=== PATIENT | female | born 1990 | race Caucasian/White ===

== ENCOUNTER 2018-06-21 08:33 | Day surgery (SDC) | payer MEDICAID ==
[~2018-06-21 08:33] MED LIST: Clindamycin Phosphate in D5W 50 ML ONE; Lactated Ringers 1,000 ML IV SCH
--- NOTE | 2018-06-21 09:31 | PCM.PREANE ---
Preanesthetic Assessment - Anesthesia/Transfusion/Family Hx Anesthesia History: Prior Anesthesia Reaction (sensative to the histamine release from morphine, does well with fentanyl and dilaudid) Family History of Anesthesia Reaction: No Transfusion History: No Prior Transfusion(s) - Review of Systems General: No Symptoms Pulmonary: No Symptoms Cardiovascular: No Symptoms Gastrointestinal: No Symptoms Neurological: No Symptoms Other: Reports: None - Physical Assessment NPO Status Date: 06/20/18 Height: 5 ft 6 in Weight: 73.936 kg ASA Class: 2 Mental Status: Alert & Oriented x3 Airway Class: Mallampati = 1 Dentition: Reports: Normal Dentition ROM/Head Extension: Full Lungs: Clear to Auscultation Cardiovascular: Regular Rate, Regular Rhythm - Lab Values: Laboratory Last Values Urine HCG, Qual NEGATIVE (NEGATIVE) 06/21/18 08:52 - Allergies Allergies/Adverse Reactions: Allergies Allergy/AdvReac Type Severity Reaction Status Date / Time gluten Allergy Diarrhea Verified 06/21/18 09:24 morphine Allergy Shortness Verified 06/21/18 09:24 of Breath Penicillins Allergy Nausea and Verified 06/21/18 09:24 Vomiting - Blood Blood Available: No - Anesthesia Plan Pre-Op Medication Ordered: None - Acknowledgements Anesthesia Type Planned: General Anesthesia Pt an Appropriate Candidate for the Planned Anesthesia: Yes Alternatives and Risks of Anesthesia Discussed w Pt/Guardian: Yes Pt/Guardian Understands and Agrees with Anesthesia Plan: Yes Additional Comments: PMH:celiac dx, morphine sensativity, PLAN: ga-lma PreAnesthesia Questionnaire HEENT History: Reports: Other (See Below) Other HEENT History: uses glasses for driving- hx of fx nose Gastrointestinal History: Reports: Other (See Below) Other Gastrointestinal History: hx of Celiac Disease Genitourinary History: Reports: Renal Calculus 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 SETTER History: Reports: Endometriosis, Musculoskeletal History: Reports: Fracture Other Musculoskeletal History: hx of fx wrist Neurological History: Reports: Other (See Below) Other Neuro History: hx of motion sickness Psychiatric History: Reports: Anxiety Hematologic History: Reports: Iron Deficiency, Other (See Below) Other Hematologic History: Vitamin D deficency, low Ferritin level Dermatologic History: Reports: Eczema, Other (See Below) Other Dermatologic History: hx of Herpes - Past Surgical History HEENT Surgical History: Reports: Oral Surgery, Tonsillectomy Other HEENT Surgeries/Procedures: extraction of Merrill teeth GI Surgical History: Reports: Cholecystectomy, Hernia, Inguinal Female Surgical History: Reports: Section, Endometrial Ablation, Hysterectomy, Other (See Below) Other Female Surgeries/Procedures: hx of theraputic - SUBSTANCE USE Smoking Status *Q: Never Smoker Recreational Drug Use History: No - HOME MEDS Home Medications: Home Meds Acyclovir 400 mg PO BID 06/18/18 [History] Beef Liver 1 cap PO DAILY 06/18/18 [History] Cholecalciferol (Vitamin D3) [Vitamin D3] 50,000 unit PO WEEKLY 06/18/18 [ History] LORazepam 2 mg PO ONETIME PRN 06/18/18 [History] Phytonadione [Vitamin K] 100 mcg PO DAILY 06/18/18 [History] - CURRENT (IN HOUSE) MEDS Current Meds: Current Medications Lactated Ringer's (Ringers, Lactated) 1,000 mls @ 125 mls/hr IV ASDIRECTED JAY JAY Discontinued Medications Clindamycin Phosphate 300 mg/ (Sodium Chloride) 52 mls @ 100 mls/hr IV ASDIRECTED JAY JAY Stop: 06/21/18 06:32 Clindamycin Phosphate (Cleocin In D5w) Confirm Administered Dose 50 mls @ as directed .ROUTE .STK-MED ONE Stop: 06/21/18 07:47
[2018-06-21] MEDS ORDERED: Midazolam 1 MG/ML 2 ML SDV ONE (10:28)
[2018-06-21] MEDS ORDERED: Propofol 200 MG/20 ML SDV ONE (10:28)
[2018-06-21] MEDS ORDERED: Lidocaine 2% 5 ML SDV ONE (10:28)
[2018-06-21] MEDS ORDERED: fentaNYL 250 MCG/5 ML SDV ONE (10:28)
[2018-06-21] MEDS ORDERED: Clindamycin Phosphate in D5W 600 MG in Premix Bag 1 BAG IV ONE ×2 (10:36)
[2018-06-21] MEDS ORDERED: Bupivacaine 0.5% 10 ML SDV ONE (10:36)
[2018-06-21] MEDS ORDERED: Ondansetron 4 MG/2 ML SDV ONE (11:12)
[2018-06-21] MEDS ORDERED: Ketorolac 30 MG/ML SDV ONE (11:12)
[2018-06-21] MEDS ORDERED: Dexamethasone 4 MG/ML 5 ML MDV ONE (11:12)
--- NOTE | 2018-06-21 12:22 | PN ---
PREOPERATIVE PROGRESS NOTE PATIENT IDENTIFICATION: The patient is a 27-year-old female. 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 PLANNED PROCEDURE: Derotational arthroplasties of left and right 4th and 5th toes with temporary K- wire fixation used as needed and flexor tenotomies of left and right 4th and 5th toes as needed. ALLERGIES: The patient does have allergy to penicillin. ACTIVE MEDICATIONS: 1. Acyclovir 400 mg tablet take 1 tablet by mouth twice a day. 2. Cholecalciferol 50,000 international units 1 capsule by mouth every week; after 10 weeks take [id number] vitamin D 2000 international units daily. 3. Lorazepam 2 mg oral tablet 1 tab by mouth once for premedication prior to dental procedures. 4. Miscellaneous medication of beef liver capsule by mouth every day. 5. Vitamin K1 100 mcg oral tablet 1 tab by mouth every day. PAST MEDICAL HISTORY: The patient has a past medical history of nephrolithiasis, history of anemia, celiac disease, vitamin D deficiency, situational anxiety, and endometriosis. PRIOR SURGICAL HISTORY: Tonsillectomy, right inguinal hernia repair, wisdom teeth, laparoscopic cholecystectomy, therapeutic , , hysterectomy, and endometriosis ablation. LABORATORY DATA: The patient's ferritin is 7.4 g/mL, which is low and iron 221 mcg/dL, which is high. Sodium 140, potassium 3.8, CO2 is 24, calcium 9.6, BUN 14, creatinine 0.89, chloride 109. Vitamin B12 1028. PT 13.2, PTT 32.1, INR 1.2. White blood cell 3.89. Haptoglobin is 35.1. The patient has tolerated previous anesthesia well and was cleared for surgery by Dr. Esperanza Zambrano. All of the patient's questions have been answered. No guarantees expressed or implied. Risks and benefits have been discussed with the patient including prolonged healing, risk of infection, and other risks. The patient consents in writing for procedures today. DIA MUNIZ /[phone]
[2018-06-21] MEDS ORDERED: fentaNYL 100 MCG/2 ML SDV IVPUSH PRN (14:31)
--- NOTE | 2018-06-21 14:43 | PCM.OPNOTE ---
- General Post-Op/Procedure Note Date of Surgery/Procedure: 06/21/18 Operative Procedure(s): 1. PIPJ arthroplasty left fourth toe. 2. PIPJ arthroplasty left fifth toe. 3. Flexor tenotomy left fourth toe. 4. PIPJ arthroplasty right fourth fifth toe. 5. PIPJ arthroplasty right fifth toe. 6. Flexor tenotomy right fourth toe. 7. Flexor tenotomy right fifth toe. Findings: consistent with diagnoses Pre Op Diagnosis: adductovarus left fourth toe, left fifth toe, right fourth toe , right fifth toe. hammertoe contracture left fourth toe, left fifth toe, right fourth toe, right fifth toe Post-Op Diagnosis: adductovarus left fourth toe, left fifth toe, right fourth toe, right fifth toe. hammertoe contracture left fourth toe, left fifth toe, right fourth toe, right fifth toe Anesthesia Technique: General LMA EBL in mLs: 10 Complications: none Condition: Good Free Text/Narrative:: materials: temporary 0.045 inch k-wires x 2, 4-0 Vicryl, 4-0 Prolene injectables: 10 ml 0.5% marcaine plain split evenly to each foot tourniquet time: left 77 minutes, right 59 minutes
--- NOTE | 2018-06-21 14:58 | PCM.POSTAN ---
POST ANESTHESIA ASSESSMENT - MENTAL STATUS Mental Status: Alert (NO anesthesia complications noted.), Oriented - RESPIRATORY Respiratory Status: Respiratory Rate WNL, Airway Patent, O2 Saturation Stable - CARDIOVASCULAR CV Status: Pulse Rate WNL, Blood Pressure Stable - GASTROINTESTINAL GI Status: No Symptoms - POST OP HYDRATION Hydration Status: Adequate & Stable
[2018-06-21] MEDS ORDERED: Haloperidol Lactate 5 MG/ML SDV ONE (15:25)
[2018-06-21] MEDS: Haloperidol Lactate 5 MG/ML SDV IM ONE ×2 (15:27→15:35)
--- NOTE | 2018-06-21 15:47 | PCM48HPAN ---
Post Anesthesia Note - EVALUATION WITHIN 48HRS OF ANESTHETIC Vital Signs in Normal Range: Yes Patient Participated in Evaluation: Yes Respiratory Function Stable: Yes Airway Patent: Yes Cardiovascular Function Stable: Yes Hydration Status Stable: Yes Pain Control Satisfactory: Yes Nausea and Vomiting Control Satisfactory: Yes Mental Status Recovered: Yes Resp Rate: 10 - COMMENTS/OBSERVATIONS Free Text/Narrative:: Patient states ready to head home. Pain level acceptable per patient and is at 3 /10. VSS. Nausea resolved. No anesthesia complication noted at this time.
--- NOTE | 2018-06-22 00:55 | OR ---
SURGEON: Santy Ly DPM DATE OF PROCEDURE: 06/21/2018 PREOPERATIVE DIAGNOSES: 1. Hammertoe of left 4th toe. 2. Adductovarus deformity with Hammertoe of left 5th toe. 3. Adductovarus deformity of left 4th toe. 4. Hammertoe of right 4th toe. 5. Hammertoe of right 5th toe. 6. Adductovarus deformity of right 4th toe. 7. Adductovarus deformity of right 5th toe. POSTOPERATIVE DIAGNOSES: 1. Hammertoe of left 4th toe. 2. Adductovarus deformity with Hammertoe of left 5th toe. 3. Adductovarus deformity of left 4th toe. 4. Hammertoe of right 4th toe. 5. Hammertoe of right 5th toe. 6. Adductovarus deformity of right 4th toe. 7. Adductovarus deformity of right 5th toe. OPERATIVE PROCEDURES: 1. Derotational proximal interphalangeal joint arthroplasty of the left 4th toe with temporary Yony wire fixation. 2. Derotational proximal interphalangeal joint arthroplasty of the left 5th toe. 3. Flexor tenotomy, left 4th toe. 4. Derotational proximal interphalangeal joint arthroplasty of the right 4th toe with temporary Yony wire fixation. 5. Derotational proximal interphalangeal joint arthroplasty of the right 5th toe. 6. Flexor tenotomy of the right 4th toe. 7. Flexor tenotomy of the right 5th toe. FINDINGS: Consistent with diagnoses. ANESTHESIA: General LMA. ESTIMATED BLOOD LOSS: 10 mL, 5 mL on the right and 5 on the left. COMPLICATIONS: None. CONDITIONS: The patient tolerated the procedures and the anesthesia well with no complications noted. MATERIALS: Temporary 0.045 inch K-wires x2 and 4-0 Vicryl and 4-0 Prolene. INJECTABLES: 10 mL of 0.5% Marcaine plain, split with 5 mL to the left foot and 5 mL of the right foot. HEMOSTASIS: An above-ankle pneumatic tourniquet inflated to a pressure of 250 mmHg. Tourniquet time on the left was 77 minutes. Tourniquet time on the right was 59 minutes. JUSTIFICATION FOR THE PROCEDURES: The patient has long suffered with moderately to severely deformed toes 4 and 5 on both feet with contractures and adductovarus rotations of the toes. The patient came to see me after seeing another chemical cell changer who was willing to do percutaneous flexor tenotomies in the office. However, due to the patient's anxiety problems, she states that she cannot be operated on in any way without being under general anesthesia. I appreciate these restrictions, and additionally I do not think that flexor tenotomies alone will sufficiently address the contractures of these toes, and therefore surgical setting of an operating room is mandatory. The patient's questions were all answered, and no guarantees were expressed or implied. Risks and benefits were discussed thoroughly with the patient including prolonged healing, failing to achieve the degree of desired straightness of the toes, and risk of infection as always exists with surgery. The patient consented in writing for all procedures with the understanding that only those procedures necessary would be performed. PROCEDURES IN DETAIL: The patient was brought to the operating room, placed on the operating table in a supine position, at which time an aseptic scrub and drape was performed on the left and right foot of the patient for these bilateral procedures. Pneumatic tourniquets were placed just above the ankles on both feet. Preoperative x-rays were taken. Incision planning was performed planning with elliptical incisions from proximal lateral to distal medial over the proximal interphalangeal joint of the left 4th and 5th toes and right 4th and 5th toes. Surgery started with all the procedures on the left foot, and therefore only the left foot tourniquet was inflated after Esmarch bandage exsanguination to begin surgery with attention directed to the patient's left 4th toe. Procedure #1: Derotational proximal interphalangeal joint arthroplasty of left 4th toe. Following the planned elliptical incision running from proximal lateral to distal medial over the proximal interphalangeal joint, the skin wedge was removed and incision was deepened through subcutaneous tissue, and tissue was retracted to allow access to the level of tendon on the left 4th toe. A Z- plasty was used to separate the tendon and reveal the proximal interphalangeal joint. A Mashpee blade was used to free collateral ligaments and attachments on the head of the proximal phalanx of this toe, and an oscillating saw was used with a freer underneath to protect underlying neurovascular structures and to enable removal of the head of the proximal phalanx of the toe. After this was done, the contracture was noted to remain on the left 4th toe due to the flexor tendon. At this time, attention was directed to procedure number #2. Procedure #2: Derotational proximal interphalangeal joint arthroplasty of left 5th toe. Following the planned elliptical incision running from proximal lateral to distal medial over the proximal interphalangeal joint, the skin wedge was removed and incision was deepened through subcutaneous tissue, and tissue was retracted to allow access to the level of tendon on the left 5th toe. A Z- plasty was used to separate the tendon and reveal the proximal interphalangeal joint. A Mashpee blade was used to free collateral ligaments and attachments on the head of the proximal phalanx of this toe, and an oscillating saw was used with a freer underneath to protect underlying neurovascular structures and to enable removal of the head of the proximal phalanx of the toe. After this was done, the contracture was noted to be sufficiently corrected and therefore it was not necessary to release the flexor tendon of the left 5th toe. Procedure #3: Flexor tenotomy of the left 4th toe. Utilizing the access to the flexor tendon of the 4th toe provided by resection of the head of the proximal phalanx of the toe, the flexor tendon was cut for a full tenotomy with the Mashpee blade. Following this, procedures 1 and 2 were completed by placing a 0.045 inch K-wire into the 4th toe from proximal to distal through the middle and distal phalanx and then retrograding proximally through the remaining portion of the proximal phalanx and into the 4th metatarsal head, confirming positioning with intraoperative fluoroscopy. The wire was secured with a straight Keo hemostat, bent with a Gutiérrez tip and , and then a wire puller was used to cut the wire and a Jurgan ball was placed on the tip of the wire for protection. The extensor tendons that were cut in procedures 1 and 2 were then reapproximated under proper physiologic tension. The subcutaneous tissue was closed after flushing with normal sterile saline. Again, the subcutaneous tissue was closed with 4-0 Vicryl suture, and this was the same suture used to reapproximate the extensor tendon on both toes. The superficial skin was then reapproximated with 4-0 Prolene suture, achieving the derotation desired. The tourniquet on the left foot was then deflated at a time of 77 minutes, and dressings consisting of Betadine-soaked Xeroform gauze, 4 x 4 gauze, and Kerlix roll were applied, and attention was directed to the right foot. The Esmarch bandage exsanguination was performed and the right foot tourniquet was then inflated to a pressure of 250 mmHg, and procedure #4 commenced at this point. Procedure #4: Derotational proximal interphalangeal joint arthroplasty of right 4th toe. Following the planned elliptical incision running from proximal lateral to distal medial over the proximal interphalangeal joint, the skin wedge was removed and incision was deepened through subcutaneous tissue, and tissue was retracted to allow access to the level of tendon on the right 4th toe. A Z- plasty was used to separate the tendon and reveal the proximal interphalangeal joint. A Mashpee blade was used to free collateral ligaments and attachments on the head of the proximal phalanx of this toe, and an oscillating saw was used with a freer underneath to protect underlying neurovascular structures and to enable removal of the head of the proximal phalanx of the toe. After this was done, the contracture was noted to remain on the right 4th toe due to the flexor tendon. Procedure #5: Derotational proximal interphalangeal joint arthroplasty of right 5th toe. Following the planned elliptical incision running from proximal lateral to distal medial over the proximal interphalangeal joint, the skin wedge was removed and incision was deepened through subcutaneous tissue, and tissue was retracted to allow access to the level of tendon on the right 5th toe. A Z- plasty was used to separate the tendon and reveal the proximal interphalangeal joint. A Mashpee blade was used to free collateral ligaments and attachments on the head of the proximal phalanx of this toe, and an oscillating saw was used with a freer underneath to protect underlying neurovascular structures and to enable removal of the head of the proximal phalanx of the toe. After this was done, the contracture was noted to remain on the right 5th toe due to the flexor tendon. Procedure #6: Flexor tenotomy of the right 4th toe. Utilizing the access to the flexor tendon achieved by removing the head of the proximal phalanx of the right 4th toe, the flexor tendon was transected with a Mashpee blade, achieving the desired release that remained of the contracture of the toe. Procedure #7: Flexor tenotomy of the right 5th toe. Using the access achieved by removing the head of the proximal phalanx of the right 5th toe, the flexor tendon was transected with a Mashpee blade. Following this and irrigation of the right 4th and 5th toe surgical sites, a K-wire 0.045 inch diameter was run from proximal to distal through the middle and distal phalanges of the 4th toe of the right foot and retrograded through the remaining proximal phalanx and into the 4th metatarsal of the right foot, and position was confirmed with intraoperative fluoroscopy. The extensor tendons of the right 4th and 5th toe were then reapproximated under physiologic tension with 4-0 Vicryl suture, and the subcutaneous layers of the toes were closed with 4-0 Vicryl suture with the superficial skin being reapproximated with 4-0 Prolene suture on the 4th and 5th toe of the right foot, achieving the remaining derotation necessary for these toes. The wire extending through the distal tip of the right 4th toe was then bent with a Gutiérrez tip as it was held with a straight Keo hemostat and was cut with a wire puller and capped with a Jurgan ball. 10 mL of 0.5% Marcaine plain was then infiltrated into the left and right foot in equal amounts, 5 mL to each, and the tourniquet was deflated on the right foot at the time of 59 minutes. In both cases when tourniquet was deflated, there was a prompt hyperemic response to the digits of both feet at the time that the respective tourniquet was deflated. The right foot dressing consisted also of Betadine- soaked Xeroform gauze, covered by 4 x 4 gauze, Kerlix roll, and secured with an Oliver bandage and same was done on left foot. Additionally, postoperative shoes were placed on the patient's feet to protect her and secure the bandages. The patient tolerated the procedures and anesthesia well with no complications noted. Following transfer to the recovery room, the patient is being discharged home. She already has prescription for adequate analgesic medication and antinausea medication and has been given written discharge instructions and will be obtaining shower bags from my office and will then schedule followup. DIA / CRISTY /[id number] JUSTUS
== END 2018-06-21 16:05 | disposition home or self-care (01) ==
LOC: MW.SDS 08:33
PROVIDERS: ATTEND Podiatrist Foot & Ankle Surgery
DX: M20.42 Other hammer toe(s) (acquired), left foot (principal); M20.41 Other hammer toe(s) (acquired), right foot; M20.5X2 Other deformities of toe(s) (acquired), left foot; M20.5X1 Other deformities of toe(s) (acquired), right foot; Z88.0 Allergy status to penicillin; Z88.5 Allergy status to narcotic agent; Z91.018 Allergy to other foods; Z79.899 Other long term (current) drug therapy
CPT/HCPCS: 28232; 28285; 81025; A4217; J0131; J1100; J1630; J1885; J2001; J2250; J2405; J2704; J3010; J3490; J7120